=== PATIENT | male | born 1990 | race Caucasian/White ===

== ENCOUNTER 2022-06-10 11:03 | Emergency (ER) | payer OTHER ==
[~2022-06-10] VITALS: Ht 190.5 cm; Wt 68.0 kg
[2022-06-10] MEDS ORDERED: HYDR1TAB94 PO ×2 (12:59→17:28)
[2022-06-10] MEDS ORDERED: Robaxin750 MG PO (12:59)
== END 2022-06-10 13:33 | disposition home or self-care (01) ==
LOC: ER 11:03
DX: S52.571A Other intraarticular fracture of lower end of right radius, initial encounter for closed fracture (principal); S52.611A Displaced fracture of right ulna styloid process, initial encounter for closed fracture; R25.2 Cramp and spasm; V44.6XXA Car passenger injured in collision with heavy transport vehicle or bus in traffic accident, initial encounter
CPT/HCPCS: 29125; 73110; 99283-25; A9270

== ENCOUNTER 2022-12-26 11:15 | Emergency (ER) | payer OTHER ==
[~2022-12-26] VITALS: Ht 190.5 cm; Wt 75.8 kg
[~2022-12-26 11:15] MED LIST: HYDR1TAB94 PO; Robaxin750 MG PO
== END 2022-12-26 12:13 | disposition home or self-care (01) ==
LOC: ER 11:15
DX: F43.20 Adjustment disorder, unspecified (principal); Z88.8 Allergy status to other drugs, medicaments and biological substances; Z79.899 Other long term (current) drug therapy
CPT/HCPCS: 99282